=== PATIENT | female | born 1980 | race Caucasian/White ===

== ENCOUNTER 2016-07-02 14:47 | Emergency (ER) | payer OTHER ==
[2016-07-02 15:01] VITALS: TEMP 98.4
[2016-07-02 15:15] LABS: COLOR PALE YELLOW; LEUKOCYTE ESTERASE,URINE NEGATIVE (NEGATIVE); NITRITE,URINE NEGATIVE (NEGATIVE)
[2016-07-02] MEDS ORDERED: NS 1,000 ML IV ONE (15:22)
[2016-07-02] MEDS ORDERED: ONDANSETRON 4 MG/2 ML VIAL IVP ONE (15:24)
--- NOTE | 2016-07-02 15:46 | EDPHY ---
H & P Time Seen by Provider: 07/02/16 14:59 HPI/ROS: HPI Right flank pain. 36-year-old female by private vehicle. This patient reports that she has had a gastrointestinal illness with vomiting and diarrhea through the weekend. She reports that this got better and she developed right-sided lower back pain and flank pain yesterday at about 2:00 p.m.. She took ibuprofen, 800 mg for this last night. She had some relief. She reports the pain started coming back this morning and increasing through this afternoon. She came to the emergency department because of this. She denies any gross hematuria. No fever. No urinary complaints. She reports now that she is in the emergency department she is feeling much better. ROS: Constitutional: No fever, no chills. No weakness. Eyes: No discharge. No changes in vision. ENT: No sore throat. No nasal congestion or rhinorrhea. Respiratory: No cough. No shortness of breath. Cardiac: No chest pain, no palpitations. Gastrointestinal: No abdominal pain, as above. Genitourinary: No hematuria. No dysuria or increased frequency with urination. Musculoskeletal: As above. No neck pain. No myalgias or arthralgias. Skin: No rashes. Neurological: No headache. No focal weakness or altered sensation. Past medical history: Denies. Social history: Here by herself. Physical Exam: General Appearance: Alert, no distress. This patient is responding to questions appropriately and in full sentences. This patient appears well- hydrated and well-nourished. Eyes: Pupils equal and round no pallor or injection. No lid edema, erythema or injection. Respiratory: There are no retractions, lungs are clear to auscultation with good air movement bilaterally. Cardiovascular: Regular rate and rhythm. No murmur. Gastrointestinal: Abdomen is soft and nontender, no masses, bowel sounds normal. No focal tenderness at McBurney's point. No Orozco sign. Back exam: No midline thoracic, lumbar, sacral tenderness on palpation. No tenderness on palpation of the bilateral sacroiliac joints. Negative same side and cross side straight leg raise test. She is neurologically intact in all myotomes in dermatomes of the bilateral lower extremities. She is vascularly intact in the bilateral lower extremities. Neurological: Motor sensory function is grossly intact. Cranial nerves are normal. Gait is normal. Skin: Warm and dry, no rashes. Musculoskeletal: No CVA tenderness on palpation bilaterally. Extremities are symmetrical. All joints range without pain or impingement. Psychiatric: No agitation. No depression. Database: EKG: Imaging: Procedures: Emergency department course: IV placed. She was placed on a monitor. She was started on IV normal saline with 1 L to be given over the next hour. She declines pain medication at this time. Urine sample obtained. 4:25 p.m., patient re-evaluated. She is resting comfortably at this time. I discussed the results of her urinalysis and blood work. She is denying any significant pain. I explained to her that her creatinine was slightly elevated this needed to be rechecked in a week. She feels comfortable going home and I feel she is safe for discharge. Follow-up and return to emergency department precautions were thoroughly reviewed with her. All of her questions were answered. She was discharged from emergency department in good condition. Differential Diagnosis: The differential diagnosis on this patient includes but is not limited to musculoskeletal back pain, pyelonephritis, ureterolithiasis. Epidural compression syndrome, spinal trauma, epidural abscess, diskitis, AAA unlikely. This represents a partial list of diagnoses considered. These considerations are based on history, physical exam, past history, reassessment and diagnostic testing. Smoking Status: Never smoked Constitutional: Initial Vital Signs Temperature (C) 36.9 C 07/02/16 14:58 Heart Rate 56 L 07/02/16 14:58 Respiratory Rate 16 07/02/16 14:58 Blood Pressure 115/76 07/02/16 14:58 O2 Sat (%) 94 07/02/16 14:58 O2 Delivery Mode Room Air Allergies/Adverse Reactions: latex Allergy (Verified 07/02/16 14:57) morphine Allergy (Verified 07/02/16 14:56) Home Medications: Medication Instructions Recorded Doxycycline Inj 07/02/16 Medical Decision Making - Data Points Laboratory Results: Laboratory Results 07/02/16 15:25 07/02/16 07/02/16 07/02/16 15:39 15:25 15:00 Sodium 137 mEq/L (134-144) Potassium 4.4 mEq/L (3.5-5.2) Chloride 100 mEq/L (97-110) Carbon Dioxide 26 mEq/l (22-31) Anion Gap 11 mEq/L (8-16) BUN 13 mg/dL (7-23) Creatinine 1.1 H mg/dL (0.6-1.0) Estimated GFR 56 Glucose 81 mg/dL (70-100) Calcium 8.8 mg/dL (8.5-10.4) Urine Color PALE YELLOW Urine Appearance CLEAR Urine pH 7.0 (5.0-7.5) Ur Specific [place] 1.003 (1.002-1.030) Urine Protein NEGATIVE (NEGATIVE) Urine Ketones NEGATIVE (NEGATIVE) Urine Blood NEGATIVE (NEGATIVE) Urine Nitrate NEGATIVE (NEGATIVE) Urine Bilirubin NEGATIVE (NEGATIVE) Urine Urobilinogen NEGATIVE EU (0.2-1.0) Ur Leukocyte Esterase NEGATIVE (NEGATIVE) Urine RBC 1-3 /hpf (0-3) Urine WBC 1-3 /hpf (0-3) Ur Epithelial Cells TRACE /lpf (NONE-1+) Ur Culture Indicated? NOT INDICATED (NI) Urine Glucose NEGATIVE (NEGATIVE) Urine Test NEGATIVE Influenza Typ A,B (DFA) NEGATIVE FOR FLU (NEGATIVE) Medications Given: Discontinued Medications Sodium Chloride (Ns) 1,000 mls @ 0 mls/hr IV EDNOW ONE PRN Reason: Wide Open Stop: 07/02/16 15:23 Last Admin: 07/02/16 15:36 Dose: 1,000 mls Ondansetron HCl (Zofran) 4 mg IVP EDNOW ONE Stop: 07/02/16 15:25 Last Admin: 07/02/16 15:37 Dose: 4 mg Departure - Departure Disposition: Home, Routine, Self-Care Clinical Impression: Right flank pain Condition: Good Instructions: Flank Pain (ED) Additional Instructions: Read and follow provided instructions. Follow-up with your primary care physician in 2-3 days for re-evaluation and recheck of your creatinine/kidney function which is a blood test. Avoid ibuprofen at this time. Tylenol dosin mg every 6 hours as needed for pain and fever over the next 2-3 days. Return to the emergency department for worsening pain, fever, vomiting, blood in your urine or other serious concerns. Referrals: [facility] [Outside] - As per Instructions Michael Doll MD [Medical Doctor] - As per Instructions IN STATE,. [Primary Care Provider] - As per Instructions
[2016-07-02 16:14] LABS: ANION GAP 11 mEq/L (8-16); CALCIUM 8.8 mg/dL (8.5-10.4); CARBON DIOXIDE 26 mEq/l (22-31); CHLORIDE 100 mEq/L (97-110); CREATININE 1.1 mg/dL (0.6-1.0); GLOMERULAR FILTRATION RATE 56; GLUCOSE 81 mg/dL (70-100); POTASSIUM 4.4 mEq/L (3.5-5.2); SODIUM 137 mEq/L (134-144)
[2016-07-02] MEDS ORDERED: HYDROCOD/APAP 5/325 PREPACK#6 BTL TAKEHOME ONE (16:36)
[2016-07-02 16:53] VITALS: BP 133/78; PULSE 16; RESP 55; O2SAT 95
== END 2016-07-02 17:04 | disposition home or self-care (01) ==
DX: R10.9 Unspecified abdominal pain (principal); Z91.040 Latex allergy status
CPT/HCPCS: 96374; J2405